=== PATIENT | female | born 1995 | race Caucasian/White ===

== ENCOUNTER 2020-02-29 05:52 | Emergency (ER) | payer OTHER ==
[~2020-02-29] VITALS: Ht 160 cm; Wt 56.2 kg
[2020-02-29] MEDS ORDERED: KETO10TA2 PO (08:05)
[2020-02-29] MEDS ORDERED: KEFLEX500 MG PO (08:05)
== END 2020-02-29 08:18 | disposition home or self-care (01) ==
LOC: ER 05:52
DX: N75.8 Other diseases of Bartholin's gland (principal)